=== PATIENT | female | born 1980 | race Caucasian/White ===

== ENCOUNTER 2023-06-19 05:43 | Emergency (ER) | payer BC, OTHER, SELFPAY ==
[2023-06-19 05:50] VITALS: BP 127/83; PULSE 101; RESP 18; TEMP 37.1; O2SAT 95; BMI 26.6
[2023-06-19 06:03] LABS: Bilirubin Urine SMALL (NEGATIVE); Blood Urine LARGE (NEGATIVE); Clarity Urine CLEAR (CLEAR); Color Urine YELLOW (YELLOW); Glucose Urine UA NEGATIVE (NEGATIVE); Ketones Urine TRACE mg/dL (NEGATIVE); Leukocyte Esterase Urine MODERATE (NEGATIVE); Nitrite Urine POSITIVE (NEGATIVE); Protein Urine >=300 mg/dL (NEG/TRACE); Specific Gravity Urine 1.025 (1.005-1.025)
[2023-06-19 06:04] LABS: Urine Microscopic Indicated YES
--- NOTE | 2023-06-19 06:05 | PC.NURSE ---
Patient to ED with concern for STD exposure. She has been having different sx for the past 4 weeks, has been treated for a UTI, BV and yeast infections, continues to have symptoms of foul smelling, yellow vaginal discharge, itching and burning of genitals and she believes there may be blood in her urine also. She says she is from her boyfriend but they had sex the last time a few days ago. She also says he is known to sleep around .
--- NOTE | 2023-06-19 06:12 | ED.FEMALEGU1 ---
HPI - Female Genitourinary General Chief complaint: Urogenital-Female Stated complaint: POSS UTI Time Seen by Provider: 06/19/23 05:47 Source: patient Mode of arrival: walk-in Limitations: no limitations History of Present Illness HPI Narrative: Patient with foul odor from vagina, vaginal itching and discharge. She was previously treated for UTI - she does not know what medication - and recently placed on Flagyl by her [employer] for BV. She is concerned about STD. No fever or chills. No vomiting or flank pain. Related Data Previous Rx's Medication Instructions Recorded doxycycline monohydrate 100 mg 100 mg PO BID 7 days #14 caps 06/19/23 capsule Allergies Allergy/AdvReac Type Severity Reaction Status Date / Time Penicillins Allergy Severe Anaphylaxis Verified 06/19/23 06:00 [facility] Social History Smoking status: Current every day smoker Exam Narrative Exam Narrative: Nurses notes and vital signs reviewed and patient is not hypoxic. afebrile General: Well-appearing and in no apparent distress. Skin: Warm, dry, no pallor noted. No rash. Eye: Pupils are equal, round and EOMI. No scleral icterus. Ears, Nose, Mouth, and Throat: Moist mucous membranes Cardiovascular: Tachycardia. Respiratory: No accessory muscle use or respiratory distress. Lungs are clear to auscultation, no wheezing, rales or rhonchi Back: No CVA tenderness Musculoskeletal: normal ROM, no lower extremity edema/swelling GI: Abdomen is soft, non-distended. Normal bowel sounds. No masses appreciated. Suprapubic tenderness to palpation. No rebound, guarding, or rigidity noted. Neurological: A&O x4. No cranial nerve dysfunction observed. No truncal ataxia. Moves all extremities. Sensation intact. Psychiatric: Cooperative and interactive. Normal mood and affect. Constitutional Vital Signs, click to edit/add: Last Vital Signs Temp 98.7 F 06/19/23 05:50 Pulse 101 H 06/19/23 05:50 Resp 18 06/19/23 05:50 BP 127/83 06/19/23 05:50 Pulse Ox 95 06/19/23 05:50 O2 Del Method Room Air 06/19/23 05:50 Course Vital Signs Vital signs: Vital Signs Temperature 98.7 F 06/19/23 05:50 Pulse Rate 101 H 06/19/23 05:50 Respiratory Rate 18 06/19/23 05:50 Blood Pressure 127/83 06/19/23 05:50 Pulse Oximetry 95 06/19/23 05:50 Oxygen Delivery Method Room Air 06/19/23 05:50 Temperature 98.7 F 06/19/23 05:50 Pulse Rate 101 H 06/19/23 05:50 Respiratory Rate 18 06/19/23 05:50 Blood Pressure 127/83 06/19/23 05:50 Pulse Oximetry 95 06/19/23 05:50 Oxygen Delivery Method Room Air 06/19/23 05:50 MDM - Female Genitourinary MDM Narrative Medical decision making narrative: UA reveals blood, nitrite and leuk est with WBC and bacteria. Patient will be prescribed doxycycline x 7 days. She was also given IM Rocephin and oral azithromycin in the ED before discharge. She was instructed to see her [employer] for follow up. Lab Data Attestation: I reviewed the patient's lab results. Labs: Lab Results 06/19/23 Range/Units 05:55 Urine Color Yellow (YELLOW) Urine Clarity Clear (CLEAR) Urine pH 6.0 (5.0-9.0) Ur Specific [place] 1.025 (1.005-1.025) Urine Protein >=300 A (NEG/TRACE) mg/dL Urine Glucose (UA) Negative (NEGATIVE) mg/dL Urine Ketones Trace A (NEGATIVE) mg/dL Urine Occult Blood Large A (NEGATIVE) Urine Nitrite Positive A (NEGATIVE) Urine Bilirubin Small A (NEGATIVE) Urine Urobilinogen 1.0 (0.2-1.0) EU/dL Ur Leukocyte Esterase Moderate A (NEGATIVE) Discharge Plan Discharge Chief Complaint: Urogenital-Female Clinical Impression: Urinary tract infection, Potential exposure to STD, Vaginitis Patient Disposition: Home, Self-Care Time of Disposition Decision: 06:19 Prescriptions / Home Meds: New doxycycline monohydrate 100 mg capsule 100 mg PO BID 7 Days Qty: 14 0RF Instructions: Safe Sex Practices (ED), Urinary Tract Infection in Women (ED), Vaginal Discharge (ED) Stand Alone Forms: Portal Instructions Referrals: Physician,Non-Staff, MD [Primary Care Provider] - 1 week
[2023-06-19 06:33] LABS: Bacteria Urine LARGE #/HPF (NONE SEEN); Cast Seen? NONE SEEN #/LPF (NONE SEEN); Crystals Seen? None Seen #/HPF (None Seen); Mucus Urine TRACE (NONE SEEN); RBC Urine >100 #/HPF (0-2); Squamous Epithelial Cell Urine MANY #/LPF (NONE/RARE); Urine Culture Indicated YES; WBC Urine >100 #/HPF (NONE SEEN)
[2023-06-19 06:39] LABS: HCG Qualitative Urine* NEGATIVE (NEGATIVE)
[2023-06-19] MEDS: CEFTRIAXONE 250 MG, WATER FOR INJECTION,STERILE 0.9 ML IM (06:46)
[2023-06-19] MEDS: AZITHROMYCIN 250 MG TABLET 1000 MG PO (06:46)
[2023-06-21 05:07] LABS: Neisseria gonorrhoeae, NAA Negative (Negative)
== END 2023-06-19 07:07 | disposition home or self-care (01) ==
PROVIDERS: Emergency Provider Emergency Medicine
DX: N39.0 Urinary tract infection, site not specified (principal); N76.0 Acute vaginitis; Z20.2 Contact with and (suspected) exposure to infections with a predominantly sexual mode of transmission; F17.210 Nicotine dependence, cigarettes, uncomplicated
CPT/HCPCS: 81001; 84703; 87086; 87150; 87186; 87491; 87591; 99283; J0696